=== PATIENT | male | born 1985 | race African-American/Black ===

== ENCOUNTER 2018-08-14 08:40 | Emergency (ER) | payer OTHER, SELFPAY ==
[2018-08-14 08:45] VITALS: BP 145/98; PULSE 83; RESP 12; TEMP 36.7; O2SAT 96
--- NOTE | 2018-08-14 08:57 | W.ED.GENAD ---
Discharge Plan Disposition Patient Disposition: HOME Condition: Stable Discharge Details Chief Complaint: Orthopedic Clinical Impression: Knee sprain Primary Care Provider: Akiko Jason ED Provider: Gurwinder Shoemaker Home Meds and New Rx's Prescriptions: Continued Januvia 25 MG tablet 25 mg PO DAILY RF: 0 omeprazole 20 MG capsule,delayed release(DR/EC) 20 mg PO DAILY RF: 0 Centrum Complete 1 EACH tablet 1 ea PO DAILY RF: 0 acetaminophen [Acetaminophen Extra Strength] 500 MG tablet 1,000 mg PO TID PRN PRNQty: 100 RF: 0 ibuprofen 800 MG tablet 800 mg PO TID PRN PRN (Reason: Pain) Qty: 60 RF: 3 Discharge Instructions Instructions: Knee Sprain (ED), RICE Therapy (ED) Additional Instructions: Please use the hinged knee brace during activity and rest over the next 2-3 days and slowly advance activity as tolerated. If weightbearing is significantly painful or uncomfortable please use crutches for the 2-3 days of rest. You may continue to use acetaminophen/ibuprofen as needed for discomfort along with ice. If not improving over the next 2 weeks please follow-up with orthopedist for reassessment Stand Alone Forms: Work Release Referrals: Rodney Cortes MD [ [facility] STAFF PHYSICIAN] - Medical Decision Making Patient presenting to the emergency department for chief complaint of left knee pain. Patient states approximately 2 hours prior to arrival he slipped on the ice and hyperextended his knee. Since then he has had knee pain. Patient does state that he had his knee scoped by Dr. Cortes couple months ago and otherwise had been healing well. Patient denies any other injury or trauma. Physical exam is positive for posterior drawer sign along with posterior knee pain and mild diffuse swelling. Exam is otherwise unremarkable. Plan to perform radiological imaging to rule out any acute fracture including avulsion fracture but mostly concern for ligamentous type injury. Patient took ibuprofen prior to arrival and denies any need of pain medication at this time. Review of radiological imaging along with radiologist preliminary interpretation shows no signs of acute fracture. There is some calcification to the medial collateral ligament that appears unchanged. Patient was placed in a hinged knee brace and instructed to rest extremity for the next 2-3 days then slowly advance activity as tolerated. Patient to follow-up with orthopedist in 2 weeks if not improving. Patient to continue [id number] pain therapy as he states this is appropriate. After discussion of diagnosis and plan of care patient has no further needs, questions, or concerns and states clear understanding to return to the emergency department for any worsening symptoms. HPI General Mode of arrival: ambulatory. Date/Time Provider Initiated Documentation: 08/14/18 08:52. Limitations to Documentation: no limitations. Information obtained by: patient and RN notes reviewed. History of Present Illness 33 year old M presents to the emergency department with the chief complaint of left knee, described as moderate, with intensity rated at 8. Quality is described as sharp, and is localized to the left and lower extremity. Patient started experiencing this hour(s) (2) and it has been constant. Movement worsens symptoms . Patient notes no other symptoms.. Patient did receive the following treatments prior to arrival, NSAID Related Data Home Medications Medication Instructions Recorded Confirmed Centrum Complete 1 ea PO DAILY 01/10/13 08/14/18 omeprazole 20 mg PO DAILY 01/10/13 08/14/18 Januvia 25 mg PO DAILY 04/07/16 08/14/18 acetaminophen [Acetaminophen Extra 1,000 mg PO TID PRN PRN #100 tablet 03/13/18 08/14/18 Strength] ibuprofen 800 mg PO TID PRN PRN #60 tablet 03/13/18 08/14/18 Previous Rx's Medication Instructions Recorded acetaminophen [Acetaminophen Extra 1,000 mg PO TID PRN PRN #100 tablet 03/13/18 Strength] ibuprofen 800 mg PO TID PRN PRN #60 tablet 03/13/18 Allergies Allergy/AdvReac Type Severity Reaction Status Date / Time No Known Allergies Allergy Unverified 08/14/18 08:48 General Stated Complaint: Orthopedic CARLOTA: 4 Review of Systems Constitutional Denies frequent falls Cardiovascular Denies syncope Musculoskeletal Reports as per HPI, Denies numbness and Denies tingling Neurologic Denies syncope, Denies frequent falls, Denies numbness and Denies tingling PFS Medical History Prediabetes Social History Smoking/Tobacco Use Status: Current-Occasional Exam Const General: cooperative, healthy appearing and no acute distress Orientation: alert, awake and oriented x3 Resp Effort & Inspection: normal respiratory effort and able to speak in complete sentences Cardio Rate: regular rate Rhythm: regular rhythm Extrem General: normal exam except as noted Left lower extremity: knee Details: tenderness Location: of the popliteal fossa, swelling (mild difuse), normal ROM and knee ligament exam abnormal Details: posterior drawer test Details: pain noted; no crepitus and no deformity Course Vital Signs Temperature 36.7 C 08/14/18 08:45 Pulse 83 08/14/18 08:45 Respiratory Rate 12 08/14/18 08:45 Blood Pressure 145/98 H 08/14/18 08:45 Pulse Oximetry 96 08/14/18 08:45 Temperature 36.7 C 08/14/18 08:45 Temperature Source Temporal Artery Scan 08/14/18 08:45 Pulse 83 08/14/18 08:45 Respiratory Rate 12 08/14/18 08:45 Respiratory Effort Non-Labored 08/14/18 08:46 Blood Pressure 145/98 H 08/14/18 08:45 Pulse Oximetry 96 08/14/18 08:45 Oxygen Delivery Method Room Air 08/14/18 08:45 Oxygen Flow Rate 0 08/14/18 08:45 Pain Level 8 08/14/18 08:45
--- NOTE | 2018-08-14 09:07 | ED.GENADUL_ITS ---
Discharge Plan Disposition Patient Disposition: HOME Condition: Stable Discharge Details Chief Complaint: Orthopedic Clinical Impression: Knee sprain Primary Care Provider: Akiko Jason ED Provider: Gurwinder Shoemaker Home Meds and New Rx's Prescriptions: Continued Januvia 25 MG tablet 25 mg PO DAILY RF: 0 omeprazole 20 MG capsule,delayed release(DR/EC) 20 mg PO DAILY RF: 0 Centrum Complete 1 EACH tablet 1 ea PO DAILY RF: 0 acetaminophen [Acetaminophen Extra Strength] 500 MG tablet 1,000 mg PO TID PRN PRNQty: 100 RF: 0 ibuprofen 800 MG tablet 800 mg PO TID PRN PRN (Reason: Pain) Qty: 60 RF: 3 Discharge Instructions Instructions: Knee Sprain (ED), RICE Therapy (ED) Additional Instructions: Please use the hinged knee brace during activity and rest over the next 2-3 days and slowly advance activity as tolerated. If weightbearing is significantly painful or uncomfortable please use crutches for the 2-3 days of rest. You may continue to use acetaminophen/ibuprofen as needed for discomfort along with ice. If not improving over the next 2 weeks please follow-up with orthopedist for reassessment Stand Alone Forms: Work Release Referrals: Rodney Cortes MD [ [facility] STAFF PHYSICIAN] - Medical Decision Making Patient presenting to the emergency department for chief complaint of left knee pain. Patient states approximately 2 hours prior to arrival he slipped on the ice and hyperextended his knee. Since then he has had knee pain. Patient does state that he had his knee scoped by Dr. Cortes couple months ago and otherwise had been healing well. Patient denies any other injury or trauma. Physical exam is positive for posterior drawer sign along with posterior knee pain and mild diffuse swelling. Exam is otherwise unremarkable. Plan to perform radiological imaging to rule out any acute fracture including avulsion fracture but mostly concern for ligamentous type injury. Patient took ibuprofen prior to arrival and denies any need of pain medication at this time. Review of radiological imaging along with radiologist preliminary interpretation shows no signs of acute fracture. There is some calcification to the medial collateral ligament that appears unchanged. Patient was placed in a hinged knee brace and instructed to rest extremity for the next 2-3 days then slowly advance activity as tolerated. Patient to follow-up with orthopedist in 2 weeks if not improving. Patient to continue [id number] pain therapy as he states this is appropriate. After discussion of diagnosis and plan of care patient has no further needs, questions, or concerns and states clear understanding to return to the emergency department for any worsening symptoms. HPI General Mode of arrival: ambulatory . Date/Time Provider Initiated Documentation: 08/14/18 08:52 . Limitations to Documentation: no limitations . Information obtained by: patient and RN notes reviewed . History of Present Illness 33 year old M presents to the emergency department with the chief complaint of left knee, described as moderate, with intensity rated at 8. Quality is described as sharp, and is localized to the left and lower extremity. Patient started experiencing this hour(s) (2) and it has been constant. Movement worsens symptoms . Patient notes no other symptoms.. Patient did receive the following treatments prior to arrival, NSAID Related Data Home Medications Medication Instructions Recorded Confirmed Centrum Complete 1 ea PO DAILY 01/10/13 08/14/18 omeprazole 20 mg PO DAILY 01/10/13 08/14/18 Januvia 25 mg PO DAILY 04/07/16 08/14/18 acetaminophen [Acetaminophen Extra 1,000 mg PO TID PRN PRN #100 tablet 03/13/18 08/14/18 Strength] ibuprofen 800 mg PO TID PRN PRN #60 tablet 03/13/18 08/14/18 Previous Rx's Medication Instructions Recorded acetaminophen [Acetaminophen Extra 1,000 mg PO TID PRN PRN #100 tablet 03/13/18 Strength] ibuprofen 800 mg PO TID PRN PRN #60 tablet 03/13/18 Allergies Allergy/AdvReac Type Severity Reaction Status Date / Time No Known Allergies Allergy Unverified 08/14/18 08:48 General Stated Complaint: Orthopedic CARLOTA: 4 Review of Systems Constitutional Denies frequent falls Cardiovascular Denies syncope Musculoskeletal Reports as per HPI, Denies numbness and Denies tingling Neurologic Denies syncope, Denies frequent falls, Denies numbness and Denies tingling PFS Medical History Prediabetes Social History Smoking/Tobacco Use Status: Current-Occasional Exam Const General: cooperative, healthy appearing and no acute distress Orientation: alert, awake and oriented x3 Resp Effort & Inspection: normal respiratory effort and able to speak in complete sentences Cardio Rate: regular rate Rhythm: regular rhythm Extrem General: normal exam except as noted Left lower extremity: knee Details: tenderness Location: of the popliteal fossa, swelling (mild difuse), normal ROM and knee ligament exam abnormal Details: posterior drawer test Details: pain noted; no crepitus and no deformity Course Vital Signs Temperature 36.7 C 08/14/18 08:45 Pulse 83 08/14/18 08:45 Respiratory Rate 12 08/14/18 08:45 Blood Pressure 145/98 H 08/14/18 08:45 Pulse Oximetry 96 08/14/18 08:45 Temperature 36.7 C 08/14/18 08:45 Temperature Source Temporal Artery Scan 08/14/18 08:45 Pulse 83 08/14/18 08:45 Respiratory Rate 12 08/14/18 08:45 Respiratory Effort Non-Labored 08/14/18 08:46 Blood Pressure 145/98 H 08/14/18 08:45 Pulse Oximetry 96 08/14/18 08:45 Oxygen Delivery Method Room Air 08/14/18 08:45 Oxygen Flow Rate 0 08/14/18 08:45 Pain Level 8 08/14/18 08:45
--- NOTE | 2018-08-14 09:28 | DI.RAD_ITS ---
SYMPTOM/DIAGNOSIS: KNEE PAIN, FELL LEFT KNEE: No acute fracture or joint effusion is seen. Bony densities are noted in the medial aspect of the knee which appear old. The joint spaces are well maintained. IMPRESSION: No acute abnormality.
--- NOTE | 2018-08-14 09:37 | DI.VRAD_ITS ---
EXAM: XR Left Knee, 3 Views EXAM DATE/TIME: 08/14/2018 9:21 AM CLINICAL HISTORY: 33 years old, male; Pain and injury or trauma; Fall; Initial encounter; Blunt trauma; Knee; Left; Injury details: Fall, knee pain; Prior surgery; Surgery date: 6+ months; Surgery type: Lt knee repair TECHNIQUE: XR Left knee 3 views. COMPARISON: CR LEFT KNEE 3 VIEW COMPLETE 12/13/2017 8:32 PM FINDINGS: 3 views of the left knee demonstrate no acute fracture. There is calcification of the medial collateral ligament and and unchanged, old healed fibrous cortical defect of the posterior proximal tibial meta-diaphysis. IMPRESSION: No acute fracture. Dictated and Authenticated by: Topher Chaudhari MD. Ordering:FIDELIA Purdy MD
[2018-08-14] MEDS: Acetaminophen 325 MG TAB (10:12)
[2018-08-14] MEDS: Ibuprofen 600 MG TAB PO (10:13)
== END 2018-08-14 09:59 | disposition home or self-care (01) ==
PROVIDERS: Emergency Provider Nurse Practitioner Family; PCP Family Medicine
DX: S83.92XA Sprain of unspecified site of left knee, initial encounter (principal); W00.0XXA Fall on same level due to ice and snow, initial encounter
CPT/HCPCS: 29505; 73562; 99283; 99282; L1820

== ENCOUNTER 2018-09-07 10:13 | Outpatient (REF) | payer OTHER, SELFPAY ==
[2018-09-07 14:54] LABS: COMMENT (LAB VIEW ONLY) 220.62 mg/dL; Microalb ug/mg Crea 9.2 ug/mg Cr
== END 2018-09-07 10:33 ==
LOC: NCHCN 10:13
PROVIDERS: PCP Family Medicine; Visit Provider Family Medicine
DX: E11.9 Type 2 diabetes mellitus without complications (principal)
CPT/HCPCS: 82043; 82570

== ENCOUNTER 2019-03-20 08:42 | Outpatient (REF) | payer OTHER, SELFPAY ==
[2019-03-20 19:35] LABS: Abs Immature Grans 0.01 k/cumm (0.0-0.09); Absolute Basophil Count 0.02 k/cumm (0.0-0.2); Absolute Eosinophil Count 0.09 k/cumm (0.0-0.7); Absolute Lymphocyte Count 2.22 k/cumm (1.2-3.4); Absolute Monocyte Count 0.51 k/cumm (0.11-0.7); Absolute Neutrophil Count 2.83 k/cumm (1.2-6.7); Basophils % 0.4; Eosinophils % 1.6; HCT 40.4 % (40.0-50.0); HGB 13.7 g/dL (13.5-17.5); Immature Grans % 0.2; Lymphocytes % 39.1; Mean Corp. HGB Concentration 33.9 g/dL (32.0-36.0); Mean Corpuscular Hemoglobin 31.5 pg (27.0-33.0); Mean Corpuscular Volume 92.9 fL (80-95); Mean Platelet Volume 10.7 fL (8.0-11.0); Neutrophils % 49.7; Platelet Count 258 x1000/uL (130-400); RBC 4.35 m/cumm (4.50-6.00); RBC Distribution Width 11.6 % (11.8-14.1); White Blood Cell Count 5.68 k/cumm (4.4-10.8)
[2019-03-20 20:22] LABS: ALT 83 U/L (12-78); AST 51 U/L (15-37); Alkaline Phosphatase 68 U/L (46-116); Amylase 27 U/L (25-115); Anion Gap 10.3 mmol/L (3-11); BUN 12 mg/dL (7-18); Bilirubin, Total 0.2 mg/dL (0.2-1.0); CO2 27.7 mmol/L (21.0-32.0); CREATININE 0.82 mg/dL (0.70-1.30); Calcium 9.3 mg/dL (8.5-10.1); Chloride 104 mmol/L (98-107); Glucose 213 mg/dL (70-100); Potassium 4.3 mmol/L (3.5-5.1); Sodium 142 mmol/L (136-145); Total Protein 6.9 g/dL (6.4-8.2)
== END 2019-03-20 09:02 ==
LOC: NCHCN 08:42
PROVIDERS: PCP Family Medicine; Visit Provider Family Medicine
DX: R19.7 Diarrhea, unspecified (principal); R10.12 Left upper quadrant pain
CPT/HCPCS: 80053; 82150; 85025

== ENCOUNTER 2019-08-26 13:54 | Outpatient (REF) | payer OTHER, SELFPAY ==
[2019-08-26 16:11] LABS: Hemoglobin A1C 7.8 % (3.8-5.6)
[2019-08-26 16:17] LABS: Anion Gap 11.7 mmol/L (3-11); BUN 10 mg/dL (7-18); CO2 27.3 mmol/L (21.0-32.0); CREATININE 0.72 mg/dL (0.70-1.30); Calcium 9.4 mg/dL (8.5-10.1); Chloride 103 mmol/L (98-107); Glucose 183 mg/dL (74-106); Potassium 4.1 mmol/L (3.5-5.1); Sodium 142 mmol/L (136-145); TSH (W/Ref FT4) 1.72 uIU/mL (0.36-3.74)
== END 2019-08-26 14:14 ==
LOC: NCHCN 13:54
PROVIDERS: PCP Family Medicine; Visit Provider Family Medicine
DX: E11.65 Type 2 diabetes mellitus with hyperglycemia (principal); I10 Essential (primary) hypertension
CPT/HCPCS: 80048; 83036; 84443

== ENCOUNTER 2019-11-28 11:37 | Outpatient (REF) | payer OTHER, SELFPAY ==
[2019-11-29 14:43] LABS: COVID-19 RT-PCR Result Negative (Negative)
== END 2019-11-28 11:57 ==
LOC: NCHCN 11:37
PROVIDERS: PCP Family Medicine; Visit Provider Nurse Practitioner Family
DX: Z11.59 Encounter for screening for other viral diseases (principal)
CPT/HCPCS: U0003

== ENCOUNTER 2020-03-23 17:36 | Outpatient (REF) | payer OTHER, SELFPAY ==
[2020-03-23 22:35] LABS: COMMENT (LAB VIEW ONLY) 185.47 mg/dL
== END 2020-03-23 17:56 ==
LOC: NCHCN 17:36
PROVIDERS: PCP Family Medicine; Visit Provider Family Medicine
DX: E11.9 Type 2 diabetes mellitus without complications (principal)
CPT/HCPCS: 82043; 82570

== ENCOUNTER 2020-07-24 20:33 | Outpatient (REF) | payer OTHER, SELFPAY ==
[2020-07-26 19:04] LABS: COVID-19 RT-PCR Result NEGATIVE (Negative)
== END 2020-07-24 20:53 ==
LOC: LBN 20:33
PROVIDERS: PCP Family Medicine; Visit Provider Nurse Practitioner Adult Health
DX: Z11.59 Encounter for screening for other viral diseases (principal)
CPT/HCPCS: U0003

== ENCOUNTER 2020-07-31 16:11 | Outpatient (REF) | payer OTHER, SELFPAY ==
[2020-08-03 21:29] LABS: COVID-19 RT-PCR Result NEGATIVE (Negative)
== END 2020-07-31 16:31 ==
LOC: LBN 16:11
PROVIDERS: PCP Family Medicine; Visit Provider Nurse Practitioner Adult Health
DX: Z11.59 Encounter for screening for other viral diseases (principal)
CPT/HCPCS: U0003

== ENCOUNTER 2020-09-23 19:39 | Outpatient (REF) | payer OTHER, SELFPAY ==
[2020-09-25 17:07] LABS: COVID-19 RT-PCR Result Not Detected ((See Note))
== END 2020-09-23 19:40 | disposition home or self-care (01) ==
LOC: LBN 19:39
PROVIDERS: PCP Family Medicine; Visit Provider Nurse Practitioner Adult Health
DX: Z20.822 Contact with and (suspected) exposure to COVID-19 (principal)
CPT/HCPCS: U0003

== ENCOUNTER 2020-10-18 09:40 | Emergency (ER) | payer OTHER, SELFPAY ==
[2020-10-18 09:54] VITALS: BP 187/113; PULSE 107; RESP 16; TEMP 36.4; O2SAT 98
--- NOTE | 2020-10-18 10:15 | DI.RAD_ITS ---
EXAM: XR LUMBAR SPINE COMPLETE CLINICAL HISTORY: fall pain. TECHNIQUE: 2D digital imaging was performed. COMPARISON: No exams were available for comparison FINDINGS: BONES: No fracture or destructive lesion. Vertebral bodies are unremarkable. No facet hypertrophy liane ntified. DISKS: Intervertebral disc spaces are maintained. ALIGNMENT: Lumbar spinal alignment is within normal limits. SOFT TISSUE: There is a moderate amount of stool in the rectum. IMPRESSION: No acute abnormality. DATA REPOSITORY: RADIATION DOSE DELIVERED:
--- NOTE | 2020-10-18 10:15 | DI.RAD_ITS ---
EXAM: XR THORACIC SPINE COMPLETE CLINICAL HISTORY: fall/pain. TECHNIQUE: 2D digital imaging was performed. COMPARISON: No exams were available for comparison FINDINGS: BONES: There is no fracture or destructive lesion. The vertebral bodies and posterior elements are un remarkable. DISKS:Alignment is within normal limits. Intervertebral disc spaces are maintained. SOFT TISSUE: Visualized lungs are clear. IMPRESSION: Unremarkable radiographs of the thoracic spine. DATA REPOSITORY: RADIATION DOSE DELIVERED:
[2020-10-18] MEDS: Lidocaine 5% Patch 1 PATCH TP (10:40)
--- NOTE | 2020-10-18 11:02 | ED.GENADUL_ITS ---
Discharge Plan Disposition Patient Disposition: HOME Condition: Stable Discharge Details Clinical Impression: Back pain Primary Care Provider: Akiko Jason ED Provider: Louis Lawson Home Meds and New Rx's Prescriptions: New lidocaine [Lidoderm] 5 % adhesive patch,medicated 1 patch topical DAILY Qty: 15 RF: 0 Continued omeprazole 20 MG capsule,delayed release(DR/EC) 20 mg PO DAILY RF: 0 amlodipine 5 mg Tablet 5 mg PO DAILY RF: 0 Victoza 2-Chris 0.6 mg/0.1 mL (18 mg/3 mL) Pen Injector 0.6 mg SUBCUT DAILY RF: 0 acetaminophen [Acetaminophen Extra Strength] 500 MG tablet 1,000 mg PO TID PRN PRNQty: 100 RF: 0 ibuprofen 800 MG tablet 800 mg PO TID PRN PRN (Reason: Pain) Qty: 60 RF: 3 Discharge Instructions Instructions: Back Pain (ED) Additional Instructions: X-rays of your thoracic and lumbar spine are unremarkable today. Lidoderm patches as directed. Cool and/or warm compresses every 2 hours for 20 days. Gentle stretching as tolerated. [id number] Tylenol and/or Motrin as directed for discomfort. Please watch for new or worsening symptoms and return to the ER for any concerns. I do recommend speaking with your employer, given the injury occurred at work they may want you to be seen by a specific Workmen's Comp. provider; however, if not then I recommend contacting your primary care provider tomorrow for reevaluation. Work note for the next few days have been given. Stand Alone Forms: Work Release Discharge Data Discharge Date/Time-TO BE ENTERED AT DEPARTURE: 10/18/20 12:00 Medical Decision Making This is a 35-year-old gentleman, past medical history of GERD and hypertension presenting for evaluation of back pain status post slip and fall that occurred 2 days ago while at work. Clinically he appears well, nontoxic. He is neurologically intact. No evidence of cauda equina. Discussed options, patient declines injection of Toradol. He is agreeable to obtaining T-spine and L-spine x-rays. He is also agreeable to a Lidoderm patch. X-ray of T-spine and L-spine read by radiology as negative. Discussed x-rays with patient. He is relieved and has no additional questions or concerns. He will be given a prescription for Lidoderm patches, will continue [id number] medications as Tylenol and/or Motrin, gentle stretching, cool and/or warm compresses as tolerated. I will provide a work note for the next couple of days as well. 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 Physical therapy may be beneficial if symptoms persist with conservative care. He was encouraged to return to the ER for new or worsening symptoms. Patient remained hemodynamically stable and neurologically intact under my care. Both blood pressure and heart rate trended down nicely. Medical Records Medical records reviewed: Yes I reviewed the patient's medical records. HPI General Mode of arrival: ambulatory . Date/Time Provider Initiated Documentation: 10/18/20 10:01 . Limitations to Documentation: no limitations . Information obtained by: patient . HPI Narrative: This is a 35-year-old gentleman, past medical history that includes hypertension, GERD, presenting to the ER for back pain status post fall. He states that he was at work, slipped outside on ice, falling directly onto his back and striking his head. He denies any LOC. Since the fall he has experienced diffuse mild headaches and diffuse back pain. He denies any visual changes, neck pain, chest pain abdominal pain, incontinence, numbness, tingling, weakness, radiation of pain down his legs. He denies any hematuria. He took [id number] medication with little relief. He states today getting out of bed he was just more sore and stiff and decided to come to the ER. Related Data Home Medications Medication Instructions Recorded Confirmed omeprazole 20 mg PO DAILY 01/10/13 10/18/20 acetaminophen [Acetaminophen Extra 1,000 mg PO TID PRN PRN #100 tablet 03/13/18 10/18/20 Strength] ibuprofen 800 mg PO TID PRN PRN #60 tablet 03/13/18 10/18/20 Victoza 2-Chris 0.6 mg SUBCUT DAILY 10/18/20 10/18/20 amlodipine 5 mg PO DAILY 10/18/20 10/18/20 lidocaine [Lidoderm] 1 patch TOPICAL DAILY #15 ea 10/18/20 Previous Rx's Medication Instructions Recorded acetaminophen [Acetaminophen Extra 1,000 mg PO TID PRN PRN #100 tablet 03/13/18 Strength] ibuprofen 800 mg PO TID PRN PRN #60 tablet 03/13/18 lidocaine [Lidoderm] 1 patch TOPICAL DAILY #15 ea 10/18/20 Allergies Allergy/AdvReac Type Severity Reaction Status Date / Time No Known Allergies Allergy Unverified 10/18/20 10:01 General Stated Complaint: Nk/Back Pain CARLOTA: 4 Review of Systems Constitutional Constitutional: Reports headache(s) and Denies weakness Eyes Eyes: Denies change in vision ENT Ears, Nose, Mouth, and Throat: Reports headache(s) and Denies neck pain Cardiovascular Cardiovascular: Denies chest pain and Denies dyspnea Respiratory Respiratory: Denies dyspnea Gastrointestinal Gastrointestinal: Denies abdominal pain, Denies fecal incontinence, Denies naus ea and Denies vomiting Genitourinary Genitourinary: Denies hematuria and Denies urinary incontinence Musculoskeletal Musculoskeletal: Reports back pain, Denies neck pain, Denies numbness, Reports stiffness and Denies tingling Neurologic Neurologic: Reports headache(s), Denies numbness, Denies tingling and Denies weakness [facility] Medical History Prediabetes Social History Smoking/Tobacco Use Status: Current-Occasional Tobacco Type: cigarettes Smoking risk assessment performed?: Yes Alcohol Intake: never Drug use: Never Substance use type: does not use Do you feel safe at home: Yes Do you feel safe in your relationship?: Yes Exam Const General: cooperative, healthy appearing, comfortable and no acute distress Orientation: alert, awake and oriented x3 [facility] Head: normal to inspection, normocephalic and atraumatic Eyes General: appearance normal, both eyes and all related structures Alignment and Position: alignment normal Periorbital: periorbital findings normal Eyelids: eyelids normal Conjunctivae: conjunctivae normal Sclera: sclerae normal Cornea: corneas normal Pupils: PERRL EOM: EOM intact bilaterally Direct ophthalmoscopy: normal light reflex Neck Neck: normal visual inspection, full ROM, trachea midline, supple and nontender Resp Effort & Inspection: normal respiratory effort and able to speak in complete sentences Auscultation: clear to auscultation bilaterally Cardio Rate: regular rate Rhythm: regular rhythm GI Palpation: soft and nontender Back/Spine/Pelvis Back: no CVA tenderness and back tenderness (Diffuse mild lumbar and thoracic discomfort, no bony point tenderness) Cervical Spine: normal cervical lordosis, cervical ROM normal, No cervical muscular tenderness and No pain with cervical ROM Thoracic/Lumbar Spine: thoracic and lumbar spine normal to inspection, thoraco- lumbar ROM normal, pain with thoraco-lumbar ROM and paraspinal tenderness Pelvis: no pain with anterior-posterior compression and no pain with lateral compression Skin General skin exam: no rashes or lesions noted Neuro General: patient alert, patient awake, patient oriented x3, moves all extremities and no focal motor deficits Cognition: normal cognition Speech: speech normal Gait: normal gait Motor: muscle tone normal throughout and strength 5/5 throughout Sensory Exam: no sensory deficits noted Extrem General: normal to inspection, full ROM and capillary refill normal Psych Appearance: grossly normal Mental Status: mental status grossly normal Course Vital Signs Vital signs: Vital Signs Temperature 36.4 C L 10/18/20 09:54 Pulse 107 H 10/18/20 09:54 Respiratory Rate 16 10/18/20 09:54 Blood Pressure 187/113 H 10/18/20 09:54 Pulse Oximetry 98 10/18/20 09:54 Temperature 36.4 C L 10/18/20 09:54 Temperature Source Skin 10/18/20 09:54 Pulse 107 H 10/18/20 09:54 Respiratory Rate 16 10/18/20 09:54 Respiratory Effort 10/18/20 10:01 Blood Pressure 187/113 H 10/18/20 09:54 Blood Pressure Position Sitting 10/18/20 09:54 Pulse Oximetry 98 10/18/20 09:54 Oxygen Delivery Method Room Air 10/18/20 09:54 Oxygen Flow Rate 0 10/18/20 09:54 Pain Level 10 10/18/20 09:54
--- NOTE | 2020-10-18 11:26 | DI.VRAD_ITS ---
PROCEDURE INFORMATION: Exam: XR Lumbosacral Spine Exam date and time: 10/18/2020 11:19 AM Age: 35 years old Clinical indication: Injury or trauma; Fall; Blunt trauma (contusions or hematomas) TECHNIQUE: Imaging protocol: XR of the lumbosacral spine. Views: 4 or 5 views. COMPARISON: No relevant prior studies available. FINDINGS: Bones/joints: There is straightening of lumbar lordosis. There is no acute fracture or subluxation. Soft tissues: Unremarkable. Gastrointestinal tract: There is moderate stool volume in the rectum. IMPRESSION: No acute findings. Dictated and Authenticated by: Butch Herring MD. Ordering:JULIO Myers MD
--- NOTE | 2020-10-18 11:27 | DI.VRAD_ITS ---
PROCEDURE INFORMATION: Exam: XR Thoracic Spine Exam date and time: 10/18/2020 11:20 AM Age: 35 years old Clinical indication: Injury or trauma; Fall; Blunt trauma (contusions or hematomas) TECHNIQUE: Imaging protocol: XR of the thoracic spine. Views: 3 views. COMPARISON: No relevant prior studies available. FINDINGS: Bones/joints: No acute fracture. Normal alignment. Soft tissues: Unremarkable. IMPRESSION: No acute findings. Dictated and Authenticated by: Butch Herring MD. Ordering:JULIO Myers MD
[2020-10-18 11:50] VITALS: BP 146/97; PULSE 80; TEMP 36.7; O2SAT 98
== END 2020-10-18 12:00 | disposition home or self-care (01) ==
PROVIDERS: Emergency Provider Physician Assistant; PCP Family Medicine
DX: M54.5 Low back pain (principal); M54.6 Pain in thoracic spine; W00.0XXA Fall on same level due to ice and snow, initial encounter; Y99.0 Civilian activity done for income or pay
CPT/HCPCS: 99284; 72072; 72110

== ENCOUNTER 2020-10-23 19:35 | Outpatient (REF) | payer OTHER, SELFPAY ==
[2020-10-23 19:44] LABS: Bilirubin Negative (Negative); Blood Negative (Negative); Clarity Cloudy (Clear); Glucose Negative (Negative); Ketones Trace mg/dL (Negative); Leukocyte Esterase Negative (Negative); Nitrite Positive (Negative); Specific Gravity >= 1.030 (1.005-1.025); Urobilinogen 0.2 EU/dL (Up TO 0.2)
[2020-10-23 19:47] LABS: Anion Gap 10.9 mmol/L (3-11); BUN 13 mg/dL (7-18); CO2 28.1 mmol/L (21.0-32.0); Calcium 9.9 mg/dL (8.5-10.1); Chloride 101 mmol/L (98-107); Glucose 222 mg/dL (74-106); Potassium 4.2 mmol/L (3.5-5.1); Sodium 140 mmol/L (136-145)
[2020-10-23 20:09] LABS: Hemoglobin A1C 10.6 % (<5.7)
[2020-10-23 20:11] LABS: RBC Negative HPF (0-2)
[2020-10-23 20:12] LABS: Epithelial Cells Negative HPF (Negative); WBC Negative HPF (0-5)
[2020-10-23 20:13] LABS: C & S Indicated? Yes; Casts Negative LPF (Negative); Crystals Negative HPF (Negative); Mucus Negative (Negative)
[2020-10-26 13:38] LABS: ALT 74 U/L (16-63); AST 41 U/L (15-37)
== END 2020-10-23 19:36 | disposition home or self-care (01) ==
LOC: NCHCN 19:35
PROVIDERS: PCP Family Medicine; Visit Provider Family Medicine
DX: E11.9 Type 2 diabetes mellitus without complications (principal); I10 Essential (primary) hypertension; R07.81 Pleurodynia; R82.998 Other abnormal findings in urine
CPT/HCPCS: 80048; 87077; 81003; 81015; 83036; 84450; 84460; 87086

== ENCOUNTER 2020-10-23 22:26 | Outpatient (CLI) | payer OTHER, SELFPAY ==
--- NOTE | 2020-10-23 | DI.RAD_ITS ---
CLINICAL HISTORY: RIB PAIN RT SIDED R07.81. COMPARISON: CR CHEST 2 VIEWS PA,LAT from 03/03/2015 FINDINGS: LUNGS:Clear. No pleural abnormality seen. HEART: Normal. MEDIASTINUM: Normal. BONES: No displaced rib fracture is seen. No bony destructive lesion is seen. OTHER FINDINGS: Visualized portions of the upper abdomen are unremarkable. IMPRESSION: 1. Unremarkable radiographic appearance of the right ribs. 2. No acute pulmonary findings.
== END 2020-10-23 22:46 ==
PROVIDERS: PCP Family Medicine; Visit Provider Family Medicine
DX: R07.81 Pleurodynia (principal)
CPT/HCPCS: 80048; 71046; 71100; 81003; 83036

== ENCOUNTER 2020-11-09 02:09 | Outpatient (CLI) | payer OTHER, SELFPAY ==
--- NOTE | 2020-11-09 | DI.CT_ITS ---
EXAM: CT ABDOMEN PELVIS W CLINICAL HISTORY: ABD PAIN,R10.9,CONTUSION OF BILAT BACK WALL OF THORAX SEQUELA,FELL. TECHNIQUE: Imaging Protocol: Axial computed tomography images with coronal and sagittal reformatted images were created and reviewed CONTRAST MATERIAL: Intravenous: Omnipaque 100cc Oral: Yes COMPARISON: No exams were available for comparison FINDINGS: VISUALIZED LUNG BASES: No nodules nor pleural effusions evident. ABDOMEN: There is no ascites. LIVER: There are 2 tiny cysts in the right hepatic lobe. There are no focal findings in the left hep atic lobe. No dilatation of intrahepatic ducts. GALLBLADDER/BILIARY: No obvious gallbladder pathology. CBD is not dilated. PANCREAS: No evidence of pancreatic mass nor dilatation of the pancreatic duct. SPLEEN: Spleen is not enlarged. No obvious intrasplenic lesions. Splenic and portal veins are paten t. ADRENALS: There are no significant adrenal masses. KIDNEYS:No cysts evident. No solid renal masses. No calculi nor hydronephrosis.. ABDOMINAL AORTA: Abdominal aorta is not enlarged. LYMPH NODES:There is no retroperitineal nor paraaortic adenopathy. ABDOMINAL WALL/GI: No evidence of significant anterior abdominal wall hernia. No evidence of inguina l hernias. No bowel obstruction. PELVIS: GI: No evidence of appendicitis.However, the appearance of the right-side of the colon just above the ileocecal valve exhibits some wall thickening for distance of approximately 5 cm, possibly significa nt. There is no significant sigmoid diverticular disease. LYMPH NODES: There is no intrapelvic nor inguinal adenopathy. REPRODUCTIVE: Prostate gland not enlarged URINARY BLADDER: No calculi nor obvious masses evident OSSEOUS: No significant osseous lesions. Sacroiliac joints appear unremarkable. IMPRESSION: 1. Slight thickening of the wall of the ascending colon of above the ileocecal valve is noted. May b e significant or may just be related to under distension with intraluminal oral contrast. The append ix appears unremarkable. There is no significant sigmoid diverticular disease. 2. Two tiny cysts are noted in the right hepatic lobe. 3. There is no ascites. RADIATION DOSE DELIVERED: 857.7mGy.cm Total DLP DATA REPOSITORY: All CT scans at this facility are submitted to the National Radiology Data Registry (NRDR) Dose Index Registry (DIR) with the [employer] (A[employer]). RADIATION OPTIMIZATION: All CT scans at this facility use at least one of these dose optimization te chniques: automated exposure control; mA and/or kV adjustment per patient size (includes targeted exa ms where dose is matched to clinical indication); or iterative reconstruction.
[2020-11-09] MEDS: Omnipaque 350 MG/ML 50 ML BTL IJ (08:57)
[2020-11-09] MEDS: Breeza Beverage 473 ML BTL PO ×2 (09:03→09:05)
[2020-11-09] MEDS: Omnipaque 350 MG/ML 100 ML BTL IV (10:38)
[2020-11-09] MEDS: Normal Saline - Diluent 50 ML VIAL IV (10:39)
[2020-11-09] MEDS: Normal Saline Flush 10 ML SYR IVP (10:40)
== END 2020-11-09 02:29 ==
PROVIDERS: PCP Family Medicine; Visit Provider Family Medicine
DX: R10.9 Unspecified abdominal pain (principal); K76.89 Other specified diseases of liver; K63.89 Other specified diseases of intestine; S20.223 Contusion of bilateral back wall of thorax
CPT/HCPCS: 74177; J3490; Q9967

== ENCOUNTER 2021-01-29 08:06 | Outpatient (REF) | payer OTHER, SELFPAY ==
[2021-01-29 14:25] LABS: HCT 37.3 % (40.0-50.0); HGB 12.7 g/dL (13.5-17.5); MCH 31.1 pg (27.0-33.0); MCV 91.2 fL (80-95); MPV 10.8 fL (8.0-11.0); Platelet Count 280 10^3/uL (130-400); RBC 4.09 10^6/uL (4.36-5.78); RDW 11.8 % (11.8-14.1); RDW-SD 39.4 fL; WBC 6.01 10^3/uL (4.4-10.8)
[2021-01-29 14:53] LABS: Hemoglobin A1C 10.9 % (<5.7); Iron 58 ug/dL (65-175); Total Iron Binding Capacity 312 ug/dL (250-450); Transferrin Sat 19 % (20-55)
[2021-01-29 15:04] LABS: ALT 65 U/L (16-63); AST 27 U/L (15-37); Albumin 4.4 g/dL (3.4-5.0); Alkaline Phosphatase 75 U/L (46-116); Anion Gap 11.8 mmol/L (3-11); BUN 11 mg/dL (7-18); Bilirubin, Total 0.2 mg/dL (0.2-1.0); CO2 23.2 mmol/L (21.0-32.0); Calcium 9.2 mg/dL (8.5-10.1); Chloride 104 mmol/L (98-107); Ferritin 414 ng/mL (26-388); Glucose 293 mg/dL (74-106); Potassium 4.2 mmol/L (3.5-5.1); Sodium 139 mmol/L (136-145)
[2021-02-01 09:15] LABS: HBs Antibody, Quant 23.7 mIU/mL (See Note); Hepatitis B Surface Ab Positive (See Note)
[2021-02-01 09:26] LABS: Hepatitis B Surface Ag Negative (Negative)
[2021-02-01 10:43] LABS: Hepatitis C Ab w Rflx HCV PCR Negative (Negative)
[2021-02-01 10:45] LABS: Hep A Total Ab w Rflx IgM Negative (Negative)
== END 2021-01-29 08:07 | disposition home or self-care (01) ==
LOC: NCHCN 08:06
PROVIDERS: PCP Family Medicine; Visit Provider Family Medicine
DX: E11.9 Type 2 diabetes mellitus without complications (principal); I10 Essential (primary) hypertension; R79.89 Other specified abnormal findings of blood chemistry; Z11.59 Encounter for screening for other viral diseases
CPT/HCPCS: 80053; 85027; 86706; 86709; 86803; 87340; 82728; 83036; 83540; 83550; 86704

== ENCOUNTER 2021-02-16 13:42 | Emergency (ER) | payer SELFPAY ==
[2021-02-16 13:58] VITALS: BP 184/112; PULSE 77; RESP 18; TEMP 36.9; O2SAT 98
--- NOTE | 2021-02-16 14:00 | DI.RAD_ITS ---
Exam(s) XR HAND LT COMPLETE EXAM: XR HAND LT COMPLETE CLINICAL HISTORY: Crush injury. TECHNIQUE: 2D digital imaging was performed. COMPARISON: No exams were available for comparison FINDINGS: BONES: No acute fracture is present. No bony destructive lesion is seen. JOINTS: No dislocation present. The PIP joint of the left ring finger is held in flexion. Please cor relate with clinical history and physical exam. Ligamentous injury may be considered in the appropri ate clinical setting. SOFT TISSUE: Normal. IMPRESSION: 1. No acute fracture or dislocation. 2. The PIP joint of the left ring finger is held in flexion. Please correlate with clinical history and physical exam. DATA REPOSITORY: RADIATION DOSE DELIVERED:
--- NOTE | 2021-02-16 14:04 | ED.GENADUL_ITS ---
Discharge Plan Disposition Patient Disposition: HOME Condition: Stable Discharge Details Clinical Impression: Crushing injury of left hand Primary Care Provider: Akiko Jason ED Provider: Joceline Buenrostro Home Meds and New Rx's Prescriptions: No Action omeprazole 20 MG capsule,delayed release(DR/EC) 20 mg PO DAILY RF: 0 amlodipine 5 mg Tablet 5 mg PO DAILY RF: 0 Victoza 2-Chris 0.6 mg/0.1 mL (18 mg/3 mL) Pen Injector 0.6 mg SUBCUT DAILY RF: 0 Discharge Instructions Instructions: Hand Sprain (ED), Crush Injury (ED) Additional Instructions: There are no broken bones evident on the x-rays today. Rest, ice, compression elevation. Ice every 20 minutes on and off for the first 2 to 3 days. Return to the ED for any severe pain not relieved by Tylenol or ibuprofen, problems with circulation cold blue numb or tingly fingers or any concerns. Wear the splint for comfort. Please take Tylenol or Ibuprofen with food every 4-6 hours as needed for pain and swelling. Stand Alone Forms: Work Release Referrals: Akiko Jason MD [Primary Care Provider] - Medical Decision Making 35-year-old male presents to the ER chief complaint of left hand pain after a crush injury which occurred approximately 1050 minutes prior to arrival. Patient was at work when a coworker came around the corner and accidentally slammed his hand in between a food cart and an object. He has a small laceration noted to the dorsum of his left hand bleeding is controlled at this time. He is complaining of hand pain finger pain. No obvious deformity noted wrist has full range of motion no other injuries or complaints. Patient reports tetanus vaccination is up-to-date XR HAND LT COMPLETE EXAM: XR HAND LT COMPLETE CLINICAL HISTORY: Crush injury. TECHNIQUE: 2D digital imaging was performed. COMPARISON: No exams were available for comparison FINDINGS: BONES: No acute fracture is present. No bony destructive lesion is seen. JOINTS: No dislocation present. The PIP joint of the left ring finger is held in flexion. Please correlate with clinical history and physical exam. Ligamentous injury may be considered in the appropriate clinical setting. SOFT TISSUE: Normal. IMPRESSION: 1. No acute fracture or dislocation. 2. The PIP joint of the left ring finger is held in flexion. Please correlate with clinical history and physical exam. Patient was placed in a universal wrist splint by medical staff services coordinator instructed to perform wound care and dressing. Patient was given written discharge instructions instructed to take Tylenol ibuprofen as needed for pain and swelling. This text was generated using [employer] dictation system, please disregard any oddities of phrase or misspellings. HPI General Mode of arrival: ambulatory . Date/Time Provider Initiated Documentation: 02/16/21 13:59 . Limitations to Documentation: no limitations . Information obtained by: patient and RN notes reviewed . HPI Narrative: 35-year-old male presents to the ER chief complaint of left hand pain after a crush injury which occurred approximately 1050 minutes prior to arrival. Patient was at work when a coworker came around the corner and accidentally slammed his hand in between a food cart and an object. He has a small lac eration noted to the dorsum of his left hand bleeding is controlled at this time. He is complaining of hand pain finger pain. No obvious deformity noted wrist has full range of motion no other injuries or complaints. Patient reports tetanus vaccination is up-to-date Related Data Home Medications Medication Instructions Recorded Confirmed omeprazole 20 mg PO DAILY 01/10/13 02/16/21 Victoza 2-Chris 0.6 mg SUBCUT DAILY 10/18/20 02/16/21 amlodipine 5 mg PO DAILY 10/18/20 02/16/21 Allergies Allergy/AdvReac Type Severity Reaction Status Date / Time No Known Allergies Allergy Unverified 02/16/21 14:02 General Stated Complaint: Orthopedic CARLOTA: 4 Review of Systems Narrative: Right hand swelling small abrasion noted she denies any numbness tingling full range of motion noted to the wrist. All systems reviewed & are unremarkable except as noted in HPI and below Musculoskeletal Musculoskeletal: Reports as per HPI, Reports arthralgias, Reports joint swelling, Denies loss of height, Denies numbness and Denies tingling Neurologic Neurologic: Denies numbness and Denies tingling [facility] Medical History (Updated 02/16/21 @ 15:31 by Joceline Buenrostro) Prediabetes Social History Smoking/Tobacco Use Status: Former Tobacco Use Smoking risk assessment performed?: Yes Alcohol Intake: never Drug use: Never Substance use type: does not use Do you feel safe at home: Yes Do you feel safe in your relationship?: Yes Exam Narrative Exam Narrative: Constitutional: Alert and oriented x3. Appears stated age. Normal body habitus. Head: Normocephalic, no trauma. Eyes: Pupils PERRLA, Red reflex noted, EOM's intact. Eyelids symmetrical without lesions, discharge, or swelling. . Musculoskeletal: Normal gait, 5/5 strength to all four extremities. Mild soft tissue swelling noted to the dorsum of the left hand there is a small subcentimeter abrasion noted with bleeding controlled. Distal circulation sensation movement intact no obvious deformity noted. No crepitus palpated. Skin: No suspicious rashes or lesions. Capillary refill less than 2 sec. Neurologic: Alert and oriented x 3. Hematologic/Lymphatic: No ecchymosis, no lymphadenopathy. Course Vital Signs Vital signs: Vital Signs Temperature 36.9 C 02/16/21 13:58 Pulse 77 02/16/21 13:58 Respiratory Rate 18 02/16/21 13:58 Blood Pressure 184/112 H 02/16/21 13:58 Pulse Oximetry 98 02/16/21 13:58 Temperature 36.9 C 02/16/21 13:58 Temperature Source Oral 02/16/21 13:58 Pulse 77 02/16/21 13:58 Respiratory Rate 18 02/16/21 13:58 Blood Pressure 184/112 H 02/16/21 13:58 Blood Pressure Position Sitting 02/16/21 13:58 Pulse Oximetry 98 02/16/21 13:58 Oxygen Delivery Method Room Air 02/16/21 13:58 Oxygen Flow Rate 0 02/16/21 13:58 Pain Level 8 02/16/21 13:58
[2021-02-16] MEDS: Acetaminophen 500 MG TAB 1000 MG PO (14:25)
--- NOTE | 2021-02-16 18:33 | NUR.NOTE ---
L hand abrasion washed, bandaid appliedNursing Note:
[2021-02-16 18:34] VITALS: BP 142/97; PULSE 72; RESP 18; O2SAT 98
== END 2021-02-16 15:39 | disposition home or self-care (01) ==
PROVIDERS: Emergency Provider Registered Nurse Emergency; PCP Family Medicine
DX: S67.22XA Crushing injury of left hand, initial encounter (principal); S60.512A Abrasion of left hand, initial encounter; W23.0XXA Caught, crushed, jammed, or pinched between moving objects, initial encounter; Y99.0 Civilian activity done for income or pay
CPT/HCPCS: 29125; 99283; 73130

== ENCOUNTER 2021-06-12 09:04 | Outpatient (REF) | payer SELFPAY ==
[2021-06-13 01:11] LABS: COVID-19 RT-PCR UVMMC Result Negative (Negative)
== END 2021-06-12 09:05 | disposition home or self-care (01) ==
LOC: LBN 09:04
PROVIDERS: PCP Family Medicine; Visit Provider Family Medicine
DX: Z20.822 Contact with and (suspected) exposure to COVID-19 (principal)
CPT/HCPCS: U0003

== ENCOUNTER 2021-06-30 16:48 | Outpatient (REF) | payer OTHER, SELFPAY ==
[2021-06-30 19:23] LABS: COMMENT (LAB VIEW ONLY) 148.69 mg/dL; Microalb ug/mg Crea 17.4 ug/mg Cr
== END 2021-06-30 16:49 | disposition home or self-care (01) ==
LOC: NCHCN 16:48
PROVIDERS: PCP Family Medicine; Visit Provider Family Medicine
DX: E11.9 Type 2 diabetes mellitus without complications (principal)
CPT/HCPCS: 82043; 82570

== ENCOUNTER 2021-08-27 06:20 | Emergency (ER) | payer SELFPAY ==
[2021-08-27 06:25] VITALS: BP 174/108; PULSE 112; RESP 18; TEMP 36.6; O2SAT 100
--- NOTE | 2021-08-27 06:25 | ED.GENADUL_ITS ---
Discharge Plan Disposition Patient Disposition: HOME Condition: Stable Discharge Details Clinical Impression: Contusion of left shoulder, Contusion of rib on left side Primary Care Provider: Akiko Jason ED Provider: Oriana Spencer Home Meds and New Rx's Prescriptions: Continued omeprazole 20 MG capsule,delayed release(DR/EC) 20 mg PO DAILY RF: 0 amlodipine 5 mg Tablet 5 mg PO DAILY RF: 0 Victoza 2-Chris 0.6 mg/0.1 mL (18 mg/3 mL) Pen Injector 0.6 mg SUBCUT DAILY RF: 0 Jardiance 10 mg Tablet 10 mg PO DAILY RF: 0 Discharge Instructions Instructions: Contusion in Adults (ED), Rib Contusion (ED) Additional Instructions: Rest, ice, and elevate the affected area as much as possible. Alternate tylenol and motrin as needed and directed for pain. You can also try [id number] Lidoderm patches as needed directed for pain. Follow-up with your primary care doctor in 1 week. Return to the emergency department with any worsening or new concerning symptoms. Stand Alone Forms: Work Release Discharge Data Discharge Physician: Oriana Spencer Medical Decision Making <Waqas Mayo MD - Last Filed: 08/27/21 06:48> Patient with a slip and fall yesterday landing on his back during left shoulder and left thoracic back region. No difficulty breathing with O2 saturations of 100%. Does appear to be uncomfortable. We will treat with IM ketorolac and Norflex and obtain x-ray of the left shoulder, chest, left ribs. <Oriana Spencer DO - Last Filed: 08/27/21 08:09> 0800 -- Please see Dr. Mayo's note for initial presentation, exam, and plan. Case endorsed to f/u on imaging and final disposition. Imaging reviewed and unremarkable. Patient reassessed and pain somewhat improved. Patient feels comfortable going home. Reassessment of lung sounds within normal limits bilaterally. Neurovascular intact. Discussed with patient that presentation appears consistent with contusion at this time and recommend to rest and ice left arm and ribs as much as possible and continue with [id number] medications including Tylenol, ibuprofen and Lidoderm patches. Discussed that xrays can miss a subtle rib fracture but that rib contusions and fractures are treated similarly with rest, pain control and time. Advised to follow up with the primary care doctor for re-evaluation. Usual and customary return precautions given prior to discharge. Medical Records Medical records reviewed: Yes I reviewed the patient's medical records. Imaging Data Radiologic Study: Radiologist's impression: XR Left Shoulder Exam date and time: 08/27/2021 6:41 AM Age: 36 years old Clinical indication: Injury or trauma; Blunt trauma (contusions or hematomas); Left; Patient HX: Trauma/fall; Per PT: Pain in L shoulder, upper ribs TECHNIQUE: Imaging protocol: XR Left shoulder. Views: 2 or more views. COMPARISON: MRI - L UPPER JOINT WO CONT 12/04/2014 8:53 PM FINDINGS: Bones/joints: The glenohumeral and acromioclavicular joints are normally aligned. No acute fracture is seen. Lungs: Visualized portions of the chest are normal. Soft tissues: Unremarkable. IMPRESSION: No evidence of acute fracture or dislocation. XR Left Ribs Exam date and time: 08/27/2021 6:41 AM Age: 36 years old Clinical indication: Injury or trauma; Blunt trauma (contusions or hematomas); Rib area, left side; Patient HX: Trauma/fall; Per PT: Pain in ribs up under shoulder L side TECHNIQUE: Imaging protocol: XR Left ribs. Views: 2 views. COMPARISON: CR CHEST 2 VIEWS PA,LAT 03/03/2015 11:00 AM FINDINGS: Bones/joints: No displaced left-sided rib fractures identified. Soft tissues: Unremarkable. IMPRESSION: No displaced left-sided rib fractures identified. XR Chest Exam date and time: 08/27/2021 6:41 AM Age: 36 years old Clinical indication: Injury or trauma; Blunt trauma (contusions or hematomas); Rib area, left side; Patient HX: Trauma/fall; Per PT: Pain in ribs up under shoulder L side TECHNIQUE: Imaging protocol: XR of the chest. Views: 2 views. COMPARISON: CR CHEST 2 VIEWS PA,LAT 03/03/2015 11:00 AM FINDINGS: Lungs: The lung parenchyma is clear. Pleural spaces: No pneumothorax. No pleural effusion. Heart/Mediastinum: The cardiomediastinal silhouette is within normal limits. Bones/joints: Unremarkable. IMPRESSION: No acute cardiopulmonary abnormality. HPI <Waqas Mayo MD - Last Filed: 08/27/21 06:48> General Mode of arrival: ambulatory . Date/Time Provider Initiated Documentation: 08/27/21 06:24 . Limitations to Documentation: no limitations . Information obtained by: patient and RN notes reviewed . HPI Narrative: Patient presents to ED with left shoulder and upper back pain status post slip and fall on ice yesterday. Patient denies striking his head or loss of consciousness. He did have the wind knocked out of him. He is not having difficulty breathing. He denies chest pain. Denies midline neck pain. Complains of left lateral neck, left posterior shoulder, left posterior rib pain. Occasionally has some tingling in his left hand. Denies any low back pain, abdominal pain, hematuria. Has used Tylenol, heat, lidocaine patches without relief and presents to ED this morning for evaluation. Related Data Home Medications Medication Instructions Recorded Confirmed omeprazole 20 mg PO DAILY 01/10/13 08/27/21 Victoza 2-Chris 0.6 mg SUBCUT DAILY 10/18/20 08/27/21 amlodipine 5 mg PO DAILY 10/18/20 08/27/21 Jardiance 10 mg PO DAILY 08/27/21 08/27/21 Allergies Allergy/AdvReac Type Severity Reaction Status Date / Time No Known Allergies Allergy Unverified 08/27/21 06:29 General CARLOTA: 4 Review of Systems <Waqas Mayo MD - Last Filed: 08/27/21 06:48> Narrative: As documented in HPI otherwise negative as below. Const: no fever, chills, weakness Resp: no cough, SOB, pleuritic pain CV: no CP, diaphoresis, edema, syncope GI: no abdominal pain, nausea, vomiting, diarrhea Neuro: no headache, numbness, focal weakness, confusion PFSH <Waqas Mayo MD - Last Filed: 08/27/21 06:48> All Active Problems (Updated 08/27/21 @ 08:02 by Oriana Spencer DO) Contusion of left shoulder (Acute) Contusion of rib on left side (Acute) Back pain (Acute) Crushing injury of left hand (Acute) Medical History GERD (gastroesophageal reflux disease) HTN (hypertension) Prediabetes Surgical History S/P arthroscopic knee surgery Social History Smoking/Tobacco Use Status: Former Tobacco Use Smoking risk assessment performed?: Yes Alcohol Intake: never Drug use: Never Substance use type: does not use Do you feel safe at home: Yes Do you feel safe in your relationship?: Yes Exam <Waqas Mayo MD - Last Filed: 08/27/21 06:48> Narrative Exam Narrative: Const: WDWN male in NAD. HEENT: NC/AT. Normal facial exam. Eyes: Normal conjunctiva and sclera. Neck: Supple. Trachea midline. No midline c-spine tenderness. Lungs: Normal respiratory effort. Lungs are clear. Some left lateral/posterior rib tenderness. Cor: RRR without murmur/gallop. Good radial pulses. GI: Soft. NT/ND. Back: No midline spine tenderness. Neuro: A+O x 3. Normal speech, mentation, gait. Cranial nerves II - XII grossly intact. No gross motor or sensory deficit. Ext: No C/C/E. No deformity. Decrease ROM at left shoulder due to pain. Tender to palpation superior/posterior shoulder. NVI distal. Skin: Warm and dry without lac/abrasion. Sign Out <Waqas Mayo MD - Last Filed: 08/27/21 06:48> Sign Out Data: Sign Out Comment: pending radiology read and re-evaluation Last updated by Waqas Mayo MD at 08/27/21 07:22
--- NOTE | 2021-08-27 06:30 | DI.RAD_ITS ---
Exam(s) XR RIBS LT W PA LAT CHEST EXAM: XR RIBS LT W PA LAT CHEST CLINICAL HISTORY: trauma/fall. TECHNIQUE: 2D digital imaging was performed. COMPARISON: CR XR RIBS RT W PA LAT CHEST from 10/23/2020 FINDINGS: Lungs are clear. Heart size normal. No pleural effusions. No pneumothorax. Three views of the left rib cage reveal no obvious fractures nor osseous lesions. No pneumothorax. No lung contusion. IMPRESSION: Lungs are clear. No rib fractures evident. DATA REPOSITORY: RADIATION DOSE DELIVERED:
--- NOTE | 2021-08-27 06:30 | DI.RAD_ITS ---
Exam(s) XR SHOULDER LT COMPLETE 2+V EXAM: XR SHOULDER LT COMPLETE 2+V CLINICAL HISTORY: trauma/fall. TECHNIQUE: 2D digital imaging was performed. COMPARISON: No exams were available for comparison FINDINGS: There is no evidence of fracture nor dislocation or abnormal soft tissue calcifications. Subacromial space appears un remarkable. Bone density normal. There are moderate degenerative changes in the AC joint. IMPRESSION: DATA REPOSITORY: RADIATION DOSE DELIVERED:
--- NOTE | 2021-08-27 07:34 | DI.VRAD_ITS ---
PROCEDURE INFORMATION: Exam: XR Left Shoulder Exam date and time: 08/27/2021 6:41 AM Age: 36 years old Clinical indication: Injury or trauma; Blunt trauma (contusions or hematomas); Left; Patient HX: Trauma/fall; Per PT: Pain in L shoulder, upper ribs TECHNIQUE: Imaging protocol: XR Left shoulder. Views: 2 or more views. COMPARISON: MRI - L UPPER JOINT WO CONT 12/04/2014 8:53 PM FINDINGS: Bones/joints: The glenohumeral and acromioclavicular joints are normally aligned. No acute fracture is seen. Lungs: Visualized portions of the chest are normal. Soft tissues: Unremarkable. IMPRESSION: No evidence of acute fracture or dislocation. Dictated and Authenticated by: Benito Benitez MD. Ordering:LARA Alan MD
--- NOTE | 2021-08-27 07:34 | DI.VRAD_ITS ---
PROCEDURE INFORMATION: Exam: XR Left Ribs Exam date and time: 08/27/2021 6:41 AM Age: 36 years old Clinical indication: Injury or trauma; Blunt trauma (contusions or hematomas); Rib area, left side; Patient HX: Trauma/fall; Per PT: Pain in ribs up under shoulder L side TECHNIQUE: Imaging protocol: XR Left ribs. Views: 2 views. COMPARISON: CR CHEST 2 VIEWS PA,LAT 03/03/2015 11:00 AM FINDINGS: Bones/joints: No displaced left-sided rib fractures identified. Soft tissues: Unremarkable. IMPRESSION: No displaced left-sided rib fractures identified. PROCEDURE INFORMATION: Exam: XR Chest Exam date and time: 08/27/2021 6:41 AM Age: 36 years old Clinical indication: Injury or trauma; Blunt trauma (contusions or hematomas); Rib area, left side; Patient HX: Trauma/fall; Per PT: Pain in ribs up under shoulder L side TECHNIQUE: Imaging protocol: XR of the chest. Views: 2 views. COMPARISON: CR CHEST 2 VIEWS PA,LAT 03/03/2015 11:00 AM FINDINGS: Lungs: The lung parenchyma is clear. Pleural spaces: No pneumothorax. No pleural effusion. Heart/Mediastinum: The cardiomediastinal silhouette is within normal limits. Bones/joints: Unremarkable. IMPRESSION: No acute cardiopulmonary abnormality. Dictated and Authenticated by: Benito Benitez MD. Ordering:LARA Alan MD
== END 2021-08-27 08:24 | disposition home or self-care (01) ==
PROVIDERS: Emergency Provider Physician Assistant; PCP Family Medicine
DX: S40.012A Contusion of left shoulder, initial encounter (principal); S20.212A Contusion of left front wall of thorax, initial encounter; W00.0XXA Fall on same level due to ice and snow, initial encounter
CPT/HCPCS: 96372; 99284; 71046; 71100; 73030; 99283